=== PATIENT | male | born 2000 | race African-American/Black ===

== ENCOUNTER 2022-03-19 08:53 | Emergency (ER) | payer OTHER ==
[2022-03-19 09:01] VITALS: BP 119/61; PULSE 65; RESP 18; TEMP 97.7; BMI 28.8
[2022-03-19] MEDS ORDERED: SODIUM CHLORIDE 1,000 ML IV STA (09:29)
[2022-03-19] MEDS ORDERED: ACETAMINOPHEN 1000 MG/100 ML BAG IVPB ONE (09:30)
[2022-03-19] MEDS ORDERED: ACETAMINOPHEN INJECTION 100 ML IVPB ONE (09:51)
[2022-03-19] MEDS ORDERED: ACETAMINOPHEN 500 MG TABLET (FP) PO ONE (10:02)
[2022-03-19] MEDS ORDERED: ACETAMINOPHEN 500 MG TABLET (FP) ONE (10:11)
[2022-03-19 10:41] LABS: BASO % 0.5 % (0-2.0); EOS % 1.2 % (0-4.5); HEMATOCRIT 44.4 % (35.4-49); HEMOGLOBIN 14.7 GM/dL (11.7-16.9); LYMPH % 36.6 % (8-40); MCHC 33.1 g/dl (32.0-35.9); MEAN CELL VOLUME 93.6 fl (80-96); MEAN PLT VOLUME 8.6 fl (7.5-11.1); MONO % 7.5 % (3.8-10.2); NEUT % 54.2 % (42.8-82.8); PLATELET COUNT 269 10^3/uL (134-434); RBC 4.75 M/mm3 (4.00-5.60); RDW 11.8 % (11.9-15.9)
[2022-03-19 11:02] LABS: CALCIUM 9.5 mg/dL (8.5-10.1)
[2022-03-19 11:03] LABS: BLOOD UREA NITROGEN 13.5 mg/dL (7-18)
[2022-03-19 11:06] LABS: CREATININE 1.1 mg/dL (0.55-1.3)
[2022-03-19 11:08] LABS: BILIRUBIN,TOTAL 0.7 mg/dL (0.2-1); TOT PROT 7.4 g/dl (6.4-8.2)
== END 2022-03-19 14:47 | disposition home or self-care (01) ==
LOC: JER 08:53
PROC: 3E0333Z Introduction of Anti-inflammatory into Peripheral Vein, Percutaneous Approach (ICD-10-PCS; principal; 2022-03-19)
PROC: 3E0337Z Introduction of Electrolytic and Water Balance Substance into Peripheral Vein, Percutaneous Approach (ICD-10-PCS; 2022-03-19)
DX: N50.819 Testicular pain, unspecified (principal)
CPT/HCPCS: 36415; 76870-TC; 80053; 85025; 99284-25

== ENCOUNTER 2023-08-02 22:10 | Emergency (ER) | payer OTHER ==
[2023-08-02 22:24] VITALS: BMI 29.8
[2023-08-02 23:24] LABS: URINE APPEARANCE Error; URINE BILIRUBIN NEGATIVE (NEGATIVE); URINE COLOR YELLOW; URINE GLUCOSE (UA) NEGATIVE (NEGATIVE); URINE KETONE TRACE (NEGATIVE); URINE LEUK ESTERASE NEGATIVE (NEGATIVE); URINE NITRITE NEGATIVE (NEGATIVE); URINE PROTEIN NEGATIVE (NEGATIVE)
[2023-08-02] MEDS ORDERED: ACETAMINOPHEN 325 MG TABLET (FP) ONE (23:44)
[2023-08-02] MEDS: ACETAMINOPHEN 325 MG TABLET (FP) PO ONE (23:49)
[2023-08-03 04:03] VITALS: BP 101/53; PULSE 55; RESP 16; TEMP 97.7
== END 2023-08-03 04:23 | disposition home or self-care (01) ==
LOC: JERFT 22:10 → JER 22:10
DX: S00.03XA Contusion of scalp, initial encounter (principal); N50.811 Right testicular pain; N50.812 Left testicular pain; R11.0 Nausea; R51.9 Headache, unspecified; Y09 Assault by unspecified means
CPT/HCPCS: 76870-TC; 81003; 99284-25

== ENCOUNTER 2024-01-19 01:08 | Emergency (ER) | payer BC, OTHER ==
[2024-01-19 01:19] VITALS: BP 141/79; PULSE 88; RESP 18; TEMP 98.2; BMI 31.1
[2024-01-19 02:29] LABS: EPI CELLS 5 /uL (0-25.1); HYALINE CASTS 0 /uL (0-3.1); PH,URINE 6.5 (5.0-8.0); URINE APPEARANCE CLEAR; URINE BACTERIA 12 /uL (0-1359); URINE BILIRUBIN NEGATIVE (NEGATIVE); URINE COLOR YELLOW; URINE GLUCOSE (UA) NEGATIVE (NEGATIVE); URINE KETONE NEGATIVE (NEGATIVE); URINE LEUK ESTERASE 2+ (NEGATIVE); URINE NITRITE NEGATIVE (NEGATIVE); URINE PROTEIN NEGATIVE (NEGATIVE); URINE RBC 19 /uL (0-23.9); URINE WBC 220 /uL (0-25.8)
== END 2024-01-19 03:59 | disposition left against medical advice (07) ==
LOC: JER 01:08
DX: N50.811 Right testicular pain (principal); N50.812 Left testicular pain
CPT/HCPCS: 76870-TC; 81003; 87086; 99284-25